=== PATIENT | female | born 1995 | race Caucasian/White ===

== ENCOUNTER 2023-08-17 06:29 | Inpatient (IN) ==
[2023-08-17] MEDS ORDERED: REGLAN INJ 10 MG VIAL IVP PRN (06:51)
[2023-08-17] MEDS ORDERED: STADOL INJ IVP PRN (06:51)
[2023-08-17] MEDS: D5 1/2 NS 1,000 ML 1,000 ML IV SCH (07:00)
--- NOTE | 2023-08-17 07:17 | DR.OB ---
OB QUICK NOTE Assessment/Plan (1) Active labor at term: Assessment/Plan: L&D 08/17/23 at 7:10am S-No complaint. O-Afebrile,VSS ECU=189 with good LTV, +accel, no decel. CTX=mild, occasional CVX=2cm/50%/-1/VTX AROM with clear fluid. IUPC and FSE placed. A-IUP at 38 5/7 weeks for induction Polyhydramnios P-Begin pitocin induction Anticipate
[2023-08-17] MEDS: OXYTOCIN 20 UNIT/1,000 ML-NS 20 UNIT/1,000 ML PLAST..BAG IV PRN (07:26)
[2023-08-17] MEDS ORDERED: NUBAIN INJ 200 MG VIAL MULTIDOSE ONE (08:31)
[2023-08-17] MEDS: NUBAIN INJ 20 MG AMP IVP PRN (08:32)
[2023-08-17] MEDS: LR 1,000 ML IV 1,000 ML IV ONE (09:00)
[2023-08-17] MEDS ORDERED: ZOFRAN INJ 4 MG VIAL ONE (09:02)
[2023-08-17] MEDS: ZOFRAN INJ 4 MG VIAL IVP PRN (09:25)
[2023-08-17] MEDS: NAROPIN EPIDURAL 0.2% 100 ML ONE (10:12)
[2023-08-17] MEDS: FENTANYL VIAL INJ 100 mcg ONE (10:13)
[2023-08-17] MEDS: PITOCIN IVP ONE (11:58)
[2023-08-17] MEDS ORDERED: MOTRIN TAB 800 MG PO PRN ×2 (12:02→12:37)
[2023-08-17] MEDS ORDERED: AMBIEN PO PRN (12:37)
[2023-08-17] MEDS ORDERED: DERMOPLAST PAIN RELIEF SPRAY TOP PRN (12:37)
[2023-08-17] MEDS ORDERED: MILK OF MAGNESIA PO PRN (12:37)
[2023-08-17] MEDS: OXYTOCIN 20 UNIT/1,000 ML-NS 20 UNIT/1,000 ML PLAST..BAG IV SCH (13:53)
--- NOTE | 2023-08-17 14:56 | DR.OB ---
OB QUICK NOTE Assessment/Plan (1) Active labor at term: Assessment/Plan: Delivery Note [employer] 08/17/23 at 11:55am Patient complete and pushing. Head delivered over intact perineum. No nuchal cord. Nose and mouth bulb suctioned. Body delivered over intact perineum. Cord clamped x 2 and cut. handed to attendant. Cord sent for gases. Placenta delivered spontaneously / intact / 3 vessel cord. No CVX / vaginal / perineal tears noted. Viable female delivered by , VTX / OA, wt=5'13" and 8/9, stable to NBN. Mother stable to RR. TOw=[id number].
[2023-08-17] MEDS: ADACEL or BOOSTRIX TDaP VACCINE IM ONE (15:21)
[2023-08-18 05:26] LABS: HEMOGLOBIN 10.5 g/dL (12.0-16.0)
[2023-08-18] MEDS: PROTONIX TAB 40 MG PO SCH (10:00)
[2023-08-18] MEDS: PRENATAL PLUS PO SCH (10:00)
[2023-08-18 16:19] VITALS: BP 117/58; PULSE 81; RESP 19; TEMP 97.2; O2SAT 98
== END 2023-08-18 15:25 | disposition home or self-care (01) | DRG 807 ==
LOC: LD 06:29 → MED/SURG 13:15
PROVIDERS: ADMIT Specialist; ATTEND Specialist
DX: K21.9 Gastro-esophageal reflux disease without esophagitis; O99.840 Bariatric surgery status complicating pregnancy, unspecified trimester; Z37.0 Single live birth; Z3A.38 38 weeks gestation of pregnancy; O40.3XX0 Polyhydramnios, third trimester, not applicable or unspecified; O99.613 Diseases of the digestive system complicating pregnancy, third trimester

== ENCOUNTER 2024-10-11 06:30 | Inpatient (IN) ==
[2024-10-11] MEDS ORDERED: NUBAIN INJ 20 MG AMP IVP PRN (06:42)
[2024-10-11] MEDS ORDERED: ZOFRAN INJ 4 MG VIAL IVP PRN (06:42)
[2024-10-11] MEDS ORDERED: REGLAN INJ 10 MG VIAL IVP PRN (06:42)
[2024-10-11] MEDS: LR 1,000 ML IV 1,000 ML IV ONE ×2 (06:44→10:49)
[2024-10-11] MEDS: D5 1/2 NS 1,000 ML 1,000 ML IV SCH (06:45)
--- NOTE | 2024-10-11 07:14 | DR.OB ---
OB QUICK NOTE Assessment/Plan (1) Elective induction of labor planned: Assessment/Plan: L&D 10/11/24 at 7:05am S-No complaint. O-Afebrile,VSS LWA=870 with good LTV, +accel, no decel. CTX=mild uterine irritability CVX=3cm/50%/-1/VTX AROM with clear fluid. IUPC and FSE placed. A-IUP at 37 6/7 weeks for induction Oligohydramnios P-Begin pitocin induction F/U labs Anticipate (2) Oligohydramnios antepartum:
[2024-10-11] MEDS: OXYTOCIN 20 UNIT/1,000 ML-NS 20 UNIT/1,000 ML PLAST..BAG IV PRN (07:20)
[2024-10-11] MEDS: FENTANYL VIAL INJ 100 mcg ONE (09:00)
[2024-10-11] MEDS: NAROPIN EPIDURAL 0.2% 100 ML ONE (10:49)
[2024-10-11] MEDS: BETADINE SOLN ONE (10:50)
[2024-10-11] MEDS: D5 1/2 NS 1,000 ML 1,000 ML IV ONE (10:51)
[2024-10-11] MEDS: PITOCIN ONE (10:51)
--- NOTE | 2024-10-11 11:47 | DR.OB ---
OB QUICK NOTE Assessment/Plan (1) Elective induction of labor planned: Assessment/Plan: L&D 10/11/24 at 11:45am Pitocin=12mu/min. S-No complaint. s/p epidural. O-Afebrile,VSS OJD=351 with good LTV, +accel, no decel. CTX=q 1 1/2 min., about 55-65mmHg CVX=4cm/75%/-1/VTX A-IUP at 37 6/7 weeks for induction Oligohydramnios P-Cont. pitocin induction Anticipate (2) Oligohydramnios antepartum:
[2024-10-11] MEDS: PITOCIN IVP ONE (12:30)
--- NOTE | 2024-10-11 12:56 | DR.OB ---
OB QUICK NOTE Assessment/Plan (1) Elective induction of labor planned: Assessment/Plan: Delivery Note [employer] 10/11/24 at 12:28pm Patient complete and pushing. Mother and stable. Infant delivered over intact perineum. No nuchal cord. Nose and mouth bulb suctioned. Body delivered over intact perineum. Cord clamped x 2 and cut. handed to attendant. Cord sent for gases. Placenta delivered spontaneously / intact / 3 vessel cord. No CVX / vaginal / perineal tears noted. Viable female delivered by , VTX/OA, wt=5'4" and 8/9, stable to NBN. Mother stable to RR. GQP=045xy. (2) Oligohydramnios antepartum:
[2024-10-11] MEDS ORDERED: AMBIEN PO PRN (13:06)
[2024-10-11] MEDS ORDERED: MILK OF MAGNESIA PO PRN (13:06)
[2024-10-11] MEDS ORDERED: MOTRIN TAB 800 MG PO PRN (13:06)
[2024-10-11] MEDS: OXYTOCIN 20 UNIT/1,000 ML-NS 20 UNIT/1,000 ML PLAST..BAG IV SCH (14:00)
[2024-10-11] MEDS: MOTRIN TAB 800 MG PO PRN (17:24)
[2024-10-11] MEDS: ADACEL or BOOSTRIX TDaP VACCINE IM ONE (19:22)
[2024-10-12 07:54] VITALS: RESP 21; TEMP 98
[2024-10-12] MEDS: PRENATAL PLUS PO SCH (08:04)
[2024-10-12] MEDS: PROTONIX TAB 40 MG PO SCH (08:05)
[2024-10-12] MEDS: DERMOPLAST PAIN RELIEF SPRAY TOP PRN (08:08)
[2024-10-12 13:08] VITALS: BP 131/74; PULSE 74; O2SAT 98
== END 2024-10-12 14:00 | disposition home or self-care (01) | DRG 806 ==
LOC: LD 06:35 → MED/SURG 14:25
PROVIDERS: ADMIT Specialist; ATTEND Specialist
DX: Z37.0 Single live birth; O47.03 False labor before 37 completed weeks of gestation, third trimester; K21.9 Gastro-esophageal reflux disease without esophagitis; O41.03X0 Oligohydramnios, third trimester, not applicable or unspecified; O99.63 Diseases of the digestive system complicating the puerperium; Z3A.37 37 weeks gestation of pregnancy